=== PATIENT | female | born 1975 | race Hispanic/Latino ===

== ENCOUNTER 2020-09-14 01:50 | Observation (INO) | payer OTHER, SELFPAY ==
[2020-09-14 02:33] LABS: #Basophils 0.1 thou/uL (0.0-0.2); #Eosinphils 0.1 thou/uL (0.0-0.7); #Monocytes 0.5 thou/uL (0.11-0.59); #Neutrophils 12.6 thou/uL (1.40-6.50); %Basophils 0.3 % (0.0-1.0); %Eosinophils 0.4 % (0.0-10.0); %Monocytes 3.3 % (0.0-10.0); %Neutrophils 82.9 % (42.0-75.0); Hemoglobin 14.9 g/dL (12.0-16.0); Mean Corpuscular HGB CONC 33.7 g/dL (32.0-36.0); Mean Corpuscular Hemoglobin 31.2 pg (27.0-31.0); Mean Corpuscular Volume 92.5 fL (78.0-98.0); Mean Platelet Volume 8.9 fL (7.4-10.4); Platelet Count 228 thou/uL (130-400); RBC Distribution Width 12.7 % (11.5-14.5); Red Blood Cell (RBC) Count 4.79 mill/uL (4.20-5.40); White Blood Cell (WBC) Count 15.2 thou/uL (4.8-10.8)
[2020-09-14 02:55] LABS: ALT (SGPT) 82 U/L (8-55); AST (SGOT) 51 U/L (5-34); Albumin 4.4 g/dL (3.5-5.0); Alkaline Phosphatase 103 U/L (40-110); Anion Gap 17 mmol/L (10-20); BUN (Urea Nitrogen) 11 mg/dL (7.0-18.7); Bilirubin, Total 0.5 mg/dL (0.2-1.2); Calc. Creatinine Clearance 0 mL/min (70-130); Carbon Dioxide 24 mmol/L (22-29); Chloride 102 mmol/L (98-107); Glucose 155 mg/dL (70-105); Lipase 13 U/L (8-78); Potassium 3.7 mmol/L (3.5-5.1); Protein, Total 8.4 g/dL (6.0-8.3); Sodium 139 mmol/L (136-145)
[2020-09-14] MEDS ORDERED: Ondansetron PF 4 MG/2 ML Vial ONE ×2 (03:12→09:06)
[2020-09-14] MEDS ORDERED: Ketorolac Tromethamine 30 MG/ML VIAL ONE ×2 (03:12→09:06)
[2020-09-14 03:28] LABS: Bilirubin Negative (Negative); Blood, Urine Negative (Negative); Glucose, Urine (Dipstick) Negative (Negative); Ketone, Urine Negative (Negative); Leukocyte Small (Negative); Nitrite Negative (Negative); Protein, Urine (Dipstick) Trace mg/dL (Neg-Trace)
[2020-09-14 03:30] LABS: Clarity Hazy (Clear)
[2020-09-14 03:38] LABS: WBC/HPF 21-50 HPF (0-3); Yeast-Budding Rare HPF (None Seen)
[2020-09-14 03:39] LABS: Pregnancy Test - Urine (BHCG) Negative (Negative); Pregu Control Background? CLEAR/WHITE (CLR/WHITE); Pregu Control Bar Appear? YES (CONTROL BAR)
[2020-09-14 04:03] LABS: Bacteria/HPF 1+ HPF (None Seen)
[2020-09-14] MEDS ORDERED: Piperacillin/Tazobactam 4.5 GM VIAL ONE (04:16)
[2020-09-14] MEDS ORDERED: Morphine 4 MG/ML VIAL SLOW IVP PRN ×2 (05:04→10:17)
[2020-09-14] MEDS ORDERED: Ondansetron PF 4 MG/2 ML Vial IVP PRN ×2 (05:15→10:17)
[2020-09-14] MEDS ORDERED: Sodium Chloride 0.9% 1,000 ML IV SCH (05:15)
[2020-09-14] MEDS ORDERED: Ondansetron ODT 4 MG TAB SL PRN (05:15)
[2020-09-14] MEDS ORDERED: Piperacillin/Tazobactam 4.5 GM in Sodium Chloride 0.9% 100 ML IVPB SCH ×2 (06:00→12:00)
[2020-09-14] MEDS ORDERED: Dexmedetomidine 200 MCG/2 ML VIAL ONE (08:07)
[2020-09-14] MEDS ORDERED: Fentanyl 100 MCG/2 ML VIAL ONE ×3 (08:07→10:30)
[2020-09-14] MEDS ORDERED: Midazolam HCl 2 mg/2 ml Vial ONE (08:08)
[2020-09-14 08:10] LABS: SARS-CoV-2 NAA Rapid Test Not Detected (NotDetected)
[2020-09-14] MEDS ORDERED: Bupivacaine 0.25% HCL 30 ML VIAL ONE (08:26)
[2020-09-14] MEDS ORDERED: Iothalamate Meglumine 60% 50 ML VIAL FS ONE (08:26)
[2020-09-14] MEDS ORDERED: Lidocaine 1% w/Epinephrine 1:100K 20 ML VIAL ONE (08:26)
[2020-09-14] MEDS ORDERED: Dexamethasone 20 MG/5 ML VIAL ONE (09:06)
[2020-09-14] MEDS ORDERED: PROPOFOL 200 MG/20 ML VIAL ONE (09:06)
[2020-09-14] MEDS ORDERED: Lidocaine 1% PF 5 ML VIAL ONE (09:06)
[2020-09-14] MEDS ORDERED: Glycopyrrolate 0.2 MG/ML 5 ML SYRINGE ONE (09:06)
[2020-09-14] MEDS ORDERED: Rocuronium Bromide 10 MG/ML (10ML VIAL) ONE (09:06)
[2020-09-14] MEDS ORDERED: Promethazine HCl 25 MG/ML VIAL SLOW IVP PRN (10:01)
[2020-09-14] MEDS ORDERED: Morphine Sulfate 2 MG/ML SYRINGE SLOW IVP PRN (10:01)
[2020-09-14] MEDS ORDERED: Meperidine HCl/PF 25 MG/ML VIAL SLOW IVP PRN (10:01)
[2020-09-14] MEDS ORDERED: Promethazine HCl 25 MG/ML VIAL IM PRN ×2 (10:01→10:17)
[2020-09-14] MEDS ORDERED: Ondansetron HCl/PF 4 MG/2 ML Vial IVP PRN (10:01)
[2020-09-14] MEDS ORDERED: Morphine 2 MG/ML VIAL SLOW IVP PRN (10:17)
[2020-09-14] MEDS ORDERED: Dextrose 50% Abboject 50 ML SYRINGE SLOW IVP PRN (10:17)
[2020-09-14] MEDS ORDERED: HYDROcodone/Acetaminophen 10/325 mg Tablet PO PRN ×2 (10:17)
[2020-09-14] MEDS ORDERED: Calcium Carbonate 500 MG ChewTAB PO PRN (10:17)
[2020-09-14] MEDS ORDERED: Dextrose 5% in Water 1,000 ML IV PRN (10:17)
[2020-09-14] MEDS ORDERED: Mag-Al 1200 mg/1200 mg/30 ML UDCUP PO PRN (10:17)
[2020-09-14] MEDS ORDERED: hydrALAZINE 20 MG/ML VIAL SLOW IVP PRN (10:17)
[2020-09-14] MEDS ORDERED: Promethazine HCl 25 MG/ML VIAL ONE (10:24)
[2020-09-14] MEDS: Lactated Ringer's 1,000 ML IV SCH ×2 (11:28→18:45)
[2020-09-14 17:00] VITALS: BP 138/72; TEMP 98.4
[2020-09-14] MEDS ORDERED: Famotidine/PF 20 mg/2ml Vial SLOW IVP SCH (21:00)
[2020-09-14] MEDS ORDERED: Famotidine 20 MG TAB PO SCH (21:00)
== END 2020-09-14 18:42 | disposition home or self-care (01) ==
LOC: ERS 01:50 → SURG A 04:04
PROVIDERS: ADMIT Surgery; ATTEND Surgery
PROC: 0FT44ZZ Resection of Gallbladder, Percutaneous Endoscopic Approach (ICD-10-PCS; principal; 2020-09-14)
PROC: BF121ZZ Fluoroscopy of Gallbladder using Low Osmolar Contrast (ICD-10-PCS; 2020-09-14)
DX: K80.12 Calculus of gallbladder with acute and chronic cholecystitis without obstruction (principal); Z20.822 Contact with and (suspected) exposure to COVID-19
CPT/HCPCS: 36415; 47532; 76705; 80053; 81003; 81015; 81025; 83690; 85025; 88304; 96374; 96375; G0378; J1100; J1610; J1885; J2250; J2270; J2405; J2543; J2550; J2704; J3010; Q9961; S0020; U0002; U0005